=== PATIENT | female | born 1975 | race Caucasian/White ===

== ENCOUNTER 2019-02-07 17:34 | Emergency (ER) | payer SELFPAY ==
[2019-02-07] MEDS ORDERED: NORMAL SALINE 1000 ML 1,000 ML IV ONE (18:01)
--- NOTE | 2019-02-07 18:01 | ER Document Report ---
ED Medical Screen (RME) - General Chief Complaint: High Blood Pressure Stated Complaint: BLOOD PRESSURE ISSUES Time Seen by Provider: 02/07/19 17:51 Mode of Arrival: Ambulatory Information source: Patient Notes: Patient presents complaining of feeling sluggish anxious and generalized weak feeling for the past 5 days. Patient denies any nausea or vomiting. Patient states her blood pressure has been running higher than normal in the 170/112 range. Patient also states that she is occasionally had headache pain. Patient was out of her blood pressure and thyroid medicine for several days as she had misplaced them but has been back on her medicine now. Patient denies any chest discomfort although states she does not feel right. I have greeted and performed a rapid initial assessment of this patient. A comprehensive ED assessment and evaluation of the patient, analysis of test results and completion of the medical decision making process will be conducted by additional ED providers. - Related Data Allergies/Adverse Reactions: No Known Allergies Allergy (Verified 02/07/19 17:51) Home Medications: Lisinopril. Should be taking levothyroxine Past Medical History - Social History Chew tobacco use (# tins/day): No Frequency of alcohol use: Occasional Drug Abuse: None Physical Exam - Vital signs Vitals: Temp Pulse Resp BP Pulse Ox 98.4 F 111 H 18 150/96 H 98 02/07/19 17:41 02/07/19 17:41 02/07/19 17:41 02/07/19 17:41 02/07/19 17:41 - Cardiovascular Rhythm: Tachycardia Heart sounds: S1 appreciated, S2 appreciated Course - Vital Signs Vital signs: Temp Pulse Resp BP Pulse Ox 98.4 F 111 H 18 150/96 H 98 02/07/19 17:41 02/07/19 17:41 02/07/19 17:41 02/07/19 17:41 02/07/19 17:41
[2019-02-07 18:40] LABS: ABSOLUTE BASOPHILS # (AUTO) 0.2 10^3/uL (0.0-0.2); ABSOLUTE EOSINOPHILS # (AUTO) 0.3 10^3/uL (0.0-0.6); ABSOLUTE LYMPHOCYTES (AUTO) 2.6 10^3/uL (0.5-4.7); ABSOLUTE MONOCYTES (AUTO) 1.1 10^3/uL (0.1-1.4); ABSOLUTE NEUT (AUTO) 7.1 10^3/uL (1.7-8.2); BASOPHILS % (AUTO) 2.1 % (0-2); EOSINOPHILS % (AUTO) 2.5 % (0-6); HEMATOCRIT 40.8 % (36.0-47.0); HEMOGLOBIN 14.3 g/dL (12.0-15.5); LYMPHOCYTES % (AUTO) 22.9 % (13-45); MEAN CORPUSCULAR HEMOGLOBIN 30.4 pg (27.0-33.4); MEAN CORPUSCULAR VOLUME 87 fl (80-97); MONOCYTES % (AUTO) 9.5 % (3-13); PLATELET COUNT 464 10^3/uL (150-450); RED CELL DISTRIBUTION WIDTH 13.9 % (11.5-14.0); TOTAL CELLS COUNTED % (AUTO) 100 %; WHITE BLOOD COUNT 11.3 10^3/uL (4.0-10.5)
[2019-02-07 19:02] LABS: ALBUMIN 4.3 g/dL (3.5-5.0); ALKALINE PHOSPHATASE 59 U/L (38-126); ANION GAP 10 (5-19); ASPARTATE AMINO TRANSFERASE 19 U/L (14-36); BILIRUBIN,DIRECT 0.2 mg/dL (0.0-0.4); BILIRUBIN,TOTAL 0.5 mg/dL (0.2-1.3); BLOOD UREA NITROGEN 22 mg/dL (7-20); CALCIUM 9.9 mg/dL (8.4-10.2); CARBON DIOXIDE 28 mmol/L (22-30); CHLORIDE 103 mmol/L (98-107); GLUCOSE 101 mg/dL (75-110); POTASSIUM 4.3 mmol/L (3.6-5.0); TOTAL PROTEIN 7.6 g/dL (6.3-8.2)
[2019-02-07 19:18] LABS: FREE T3 3.52 pg/mL (2.77-5.27); FREE T4 (FREE THYROXINE) 1.02 ng/dL (0.78-2.19)
[2019-02-07 19:32] LABS: THYROID STIMULATING HORMONE 5.06 uIU/mL (0.47-4.68)
[2019-02-07 19:56] LABS: APPEARANCE,URINE SLIGHTLY-CLOUDY; BILIRUBIN,URINE NEGATIVE (NEGATIVE); COLOR,URINE YELLOW; GLUCOSE, URINE NEGATIVE (NEGATIVE); KETONES,URINE NEGATIVE (NEGATIVE); LEUKOCYTE ESTERASE,URINE NEGATIVE (NEGATIVE); NITRITE,URINE NEGATIVE (NEGATIVE); PROTEIN,URINE NEGATIVE (NEGATIVE); URINE SPECIFIC GRAVITY 1.018; UROBILINOGEN,URINE NEGATIVE mg/dL (<2.0)
--- NOTE | 2019-02-07 20:55 | ER Document Report ---
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 Patient states she is also complained of generalized weakness and malaise. Denies any nausea or vomiting, denies any confusion, severe headache, acute shortness of breath or chest pain. Patient states that her blood pressure has been elevated with systolics in the 170s and diastolics in the low 100s to 1 teens. Patient ran out of her blood pressure and thyroid medications for several days as she has just moved here and misplaced them. No other complaints. - Related Data Allergies/Adverse Reactions: No Known Allergies Allergy (Verified 02/07/19 17:51) Home Medications: Lisinopril. Should be taking levothyroxine Past Medical History - General Information source: Patient - Social History Smoking Status: Current Every Day Smoker Chew tobacco use (# tins/day): No Frequency of alcohol use: Occasional Drug Abuse: None Family History: None Patient has suicidal ideation: No Patient has homicidal ideation: No - Past Medical History Cardiac Medical History: Reports: Hx Hypertension Past Surgical History: Reports: Hx Cholecystectomy, Hx Kidney (Renal Surgery) - removal of kidney 2010 Review of Systems - Review of Systems Constitutional: See HPI EENT: See HPI Cardiovascular: See HPI Respiratory: See HPI Gastrointestinal: See HPI Genitourinary: No symptoms reported Female Genitourinary: No symptoms reported Musculoskeletal: No symptoms reported Skin: No symptoms reported Hematologic/Lymphatic: No symptoms reported Neurological/Psychological: See HPI Physical Exam - Vital signs Vitals: Temp Pulse Resp BP Pulse Ox 98.4 F 111 H 18 150/96 H 98 02/07/19 17:41 02/07/19 17:41 02/07/19 17:41 02/07/19 17:41 02/07/19 17:41 - Notes Notes: PHYSICAL EXAMINATION: Reviewed vital signs and charting by RN GENERAL: Alert, interacts well. No acute distress. HEAD: Normocephalic, atraumatic. EYES: Pupils equal and round. Extraocular movements intact. ENT: Oral mucosa moist, tongue midline. NECK: Full range of motion. Trachea midline. LUNGS: Clear to auscultation bilaterally, no wheezes, rales, or rhonchi. No respiratory distress. HEART: Regular rate and rhythm. No murmur ABDOMEN: soft, non-tender. No distention. Bowel sounds present EXTREMITIES: Moves all 4 extremities spontaneously. No edema, No cyanosis. PSYCH: Normal affect, normal mood. SKIN: Warm, dry, normal turgor. No rashes or lesions noted. Course - Re-evaluation Re-evalutation: 02/07/19 20:56 Well-appearing in no acute distress. Lab work all within normal limits except for TSH which is mildly elevated at 5.06. Patient states she has not been taking her levothyroxine for the past month also with her antihypertensives. Normal physical exam and normal neurologic exam. Urinalysis normal. Patient's current blood pressure is 141/87. EKG done which showed a sinus rhythm, rate 98, normal axis, QTC 445, no evidence of STEMI or ST segment depressions. At this time there is no concern for a hypertensive emergency or myxedema coma. I explained all of this to patient and she is reassured and she is going to establish primary care since she just moved here. At this time she was given strict return precautions and is stable for discharge. 02/07/19 21:05 - Vital Signs Vital signs: Temp Pulse Resp BP Pulse Ox 98.4 F 111 H 18 145/87 H 99 02/07/19 17:41 02/07/19 17:41 02/07/19 17:41 02/07/19 20:01 02/07/19 20:01 - Laboratory Result Diagrams: 02/07/19 18:28 02/07/19 18:28 Laboratory results interpreted by me: 02/07/19 02/07/19 02/07/19 18:28 18:28 18:28 WBC 11.3 H Plt Count 464 H Baso % (Auto) 2.1 H BUN 22 H Est GFR (MDRD) Non-Af 57 L TSH 5.06 H Discharge - Discharge Clinical Impression: Malaise and fatigue Condition: Good Disposition: HOME, SELF-CARE Additional Instructions: You were seen in the emergency department for generalized fatigue and malaise. Your blood pressure readings were all very reassuring here in the emergency department. Your TSH level was very slightly elevated which could possibly be the reason you are having the fatigue and just feeling generally unwell. It is important that you do establish primary care promptly in the next 1 to 2 weeks. Please continue to take your daily medications. Please return to the emergency department if you develop acute shortness of breath, severe chest pain, you are unable to urinate and have severe left flank pain. Or you have any other conc erning symptoms.
[2019-02-07 21:23] VITALS: BP 142/98
--- NOTE | 2019-02-08 12:08 | EKG REPORT ---
SEVERITY:- BORDERLINE ECG - SINUS RHYTHM PROBABLE LEFT ATRIAL ABNORMALITY : Confirmed by: Sri Shen 08-Feb-2019 12:08:07
== END 2019-02-07 21:23 | disposition home or self-care (01) ==
LOC: ER 17:34
DX: R53.81 Other malaise (principal); R53.83 Other fatigue; R53.1 Weakness; I10 Essential (primary) hypertension; F17.200 Nicotine dependence, unspecified, uncomplicated; Z90.5 Acquired absence of kidney; Z90.49 Acquired absence of other specified parts of digestive tract
CPT/HCPCS: 93005; 99283; 96360; 36415; 84439; 84443; 84703; 85025; 80053; 81001; 84481; 93010; J7030